=== PATIENT | male | born 1970 | race Caucasian/White ===

== ENCOUNTER 2018-06-23 07:09 | Observation (INO) | payer MEDICAID ==
[2018-06-23] MEDS ORDERED: Albuterol-Ipratrop 3 mg / 0.5 (3 ml) UD ONE (07:15)
--- NOTE | 2018-06-23 07:22 | ED PDOC ---
Arrival/HPI - General Chief Complaint: Shortness Of Breath Time Seen by Provider: 06/23/18 07:12 Historian: Patient - History of Present Illness Narrative History of Present Illness (Text): 48 yr old male w/ hx of asthma p/w shortness of breath, wheezing. Pt notes this shortness of breath began overnight, associated with wheezing, feels like previous asthma exacerbations. Has not hx of smoking or COPD. Is not on home o2. No previous intubations. No previous admissions. No chest pain. No fever, chills or night sweats. Took inhaler at home x 1. No other complaints. Family/Social History Family/Social History: Unknown Family HX Allergies/Home Meds Allergies/Adverse Reactions: Allergies Penicillins Allergy (Verified 06/23/18 07:19) ANAPHYLAXIS Review of Systems - Review of Systems Constitutional: absent: Fatigue, Weight Change, Fevers, Night Sweats Eyes: absent: Vision Changes, Photophobia ENT: absent: Hearing Changes, Tinnitus Respiratory: SOB, Wheezing. absent: Cough, Sputum Cardiovascular: absent: Chest Pain, Palpitations, Edema, Calf Pain, Syncope Gastrointestinal: absent: Abdominal Pain, Stool Changes, Constipation, Diarrhea, Nausea, Vomiting Genitourinary Male: absent: Dysuria, Frequency, Hematuria Musculoskeletal: absent: Arthralgias, Back Pain, Neck Pain Skin: absent: Rash, Pruritis, Skin Lesions Neurological: absent: Headache, Dizziness Endocrine: absent: Diaphoresis, Polyuria Hemo/Lymphatic: absent: Adenopathy, Easy Bleeding Psychiatric: absent: Anxiety, Depression Physical Exam Pain Distress: None Mental Status: Positive for: Alert and Oriented X 3 - Systems Exam Head: Present: Atraumatic, Normocephalic Pupils: Present: PERRL Extroacular Muscles: Present: EOMI Conjunctiva: Present: Normal Ears: Present: Normal Mouth: Present: Moist Mucous Membranes Nose (Internal): Present: Normal Inspection Neck: Present: Normal Range of Motion. No: Meningeal Signs Respiratory/Chest: Present: Good Air Exchange, Wheezes. No: Accessory Muscle Use Cardiovascular: Present: Regular Rate and Rhythm, Normal S1, S2 Abdomen: Present: Normal Bowel Sounds. No: Tenderness, Distention Back: Present: Normal Inspection. No: CVA Tenderness Upper Extremity: Present: Normal Inspection. No: Cyanosis, Edema Lower Extremity: Present: Normal Inspection. No: Edema, CALF TENDERNESS Neurological: Present: GCS=15, CN II-XII Intact, Speech Normal Skin: Present: Warm, Dry, Normal Color. No: Rashes Psychiatric: Present: Alert, Oriented x 3 Medical Decision Making ED Course and Treatment: 48 yr old male w/ hx of asthma p/w asthma exacerbation: wheezes on exam. No home o2 or smoking. No fever. Will rx w/ duoneb, solumedrol and mag and reasses. additional history obtained: Recently given ?abx (pt unsure of name) 3w prior w/ steroid shot and anti-histamine w/ Dr. Cervantes. Improved, however now worsened. 06/23/18 08:55 WBC 17k. No notable CXR findings on my read allergy to penicllin- will rx w/ levoquin Mild wheezes b/l, pt speaking in full sentences. given recent outpt rx, presentation on exam req mag will seek obs/admit. pt agreeable to obs/admission 06/23/18 09:17 appreciate consult w/ Dr. Lockett: to admit to his service pt in NAD Disposition/Present on Arrival - Present on Arrival Any Indicators Present on Arrival: No - Disposition Have Diagnosis and Disposition been Completed?: Yes Diagnosis: Asthma Disposition Time: 09:18 Patient Problems: Current Active Problems Problem Status Onset Asthma Acute Condition: GOOD
[2018-06-23] MEDS ORDERED: Magnesium Sulfate 1 gm in D5W 1 GM/100 ML BAG IVPB ONE (07:23)
[2018-06-23 07:29] LABS: BASO # 0.11 K/mm3 (0.0-2.0); BASO % 0.6 % (0.0-3.0); EOS # 1.4 (0.0-0.7); EOS % 7.9 % (1.5-5.0); GRAN # 9.92 (1.4-6.5); GRAN % 57.1 % (50.0-68.0); HEMOGLOBIN 14.7 g/dL (14.0-18.0); LYMPH # 4.8 (1.2-3.4); LYMPH % 27.8 % (22.0-35.0); MEAN CELL VOLUME 83.3 fl (80.0-105.0); MEAN CORPUSCULAR HGB CONC 32.4 g/dl (31.0-37.0); MONO # 1.1 (0.1-0.6); MONO % 6.6 % (1.0-6.0); RBC 5.45 10^6/uL (3.5-6.1); RED CELL DISTRIBUTION WIDTH 12.7 % (11.5-14.5); WHITE BLOOD COUNT 17.4 10^3/uL (4.5-11.0)
[2018-06-23] MEDS: Albuterol-Ipratrop 3 mg / 0.5 (3 ml) UD IH SCH ×5 (07:29→18:52)
[2018-06-23 08:16] LABS: ALB/GLOB RATIO 1.3 (1.1-1.8); ALBUMIN 3.9 g/dL (3.0-4.8); ALT/SGPT 38 U/L (7-56); AST/SGOT 42 U/L (17-59); BLOOD UREA NITROGEN 23 mg/dL (7-21); CALCIUM 8.5 mg/dL (8.4-10.5); GFR NON-AFRICAN AMERICAN > 60
[2018-06-23] MEDS ORDERED: levoFLOXacin 750 mg in D5W 150 ML BAG IVPB ONE (09:20)
--- NOTE | 2018-06-23 09:24 | RAD ---
Date of service: 06/23/2018 HISTORY: sob COMPARISON: No prior. FINDINGS: LUNGS: No active pulmonary disease. PLEURA: No significant pleural effusion identified, no pneumothorax apparent. CARDIOVASCULAR: No aortic atherosclerotic calcification present. Normal cardiac size. No pulmonary vascular congestion. OSSEOUS STRUCTURES: No significant abnormalities. VISUALIZED UPPER ABDOMEN: Normal. OTHER FINDINGS: None. IMPRESSION: No active disease.
[2018-06-23 10:21] LABS: VENOUS BLOOD GAS BASE EXCESS -0.9 mmol/L (0.0-2.0); VENOUS BLOOD GAS PO2 193 mm/Hg (30-55); VENOUS BLOOD PH 7.32 (7.32-7.43)
[2018-06-23] MEDS ORDERED: Albuterol-Ipratrop 3 mg / 0.5 (3 ml) UD IH PRN (10:29)
--- NOTE | 2018-06-23 10:43 | CP.PCM.HP ---
<BallGeorgeHernan - Last Filed: 06/23/18 13:09> History of Present Illness - History of Present Illness History of Present Illness: 48 year old male with past medical history of seasonal allergies, questionable asthma, tinnitus, HTN presents to the emergency for cough and shortness of breath. Patient states he has had a cough now everyday for about a month and yesterday night he had shortness of breath before bed for which he used his inhaler more than 10 times without much relief. He sated he felt as if "he was going to ". Patient states he was his doctor 3 weeks ago for similar complaints and he was given inhaler and "cortisone" pills which helped his symptoms. In addition, he states he wakes up more than 2x every night to use his inhaler for the past 3 weeks. He has also started losartan about a month ago. He does mention that his daughter recently had a URI. He denies any heart con ditions. Patient denies fever, chills, body aches, nausea, vomiting, abdominal pain, or any other complaints at this time. PMH: questionable asthma, tinnitus, HTN, seasonal allergies PSH: denies Allergies:penicillin Meds: amytriptyline, losratan 50mg, ventolin inhaler Family: HTN Social: denies tobacco or illicit drug use, occasional wine PMD: [facility] Pharmacy: [facility] Present on Admission - Present on Admission Any Indicators Present on Admission: No Review of Systems - Constitutional Constitutional: absent: Chills, Fever, Headache - Cardiovascular Cardiovascular: Dyspnea, Rapid Heart Rate. absent: Chest Pain, Chest Pain with Activity - Respiratory Respiratory: Cough, Dyspnea, Dyspnea on Exertion, Wheezing. absent: Excessive Mucous Production - Gastrointestinal Gastrointestinal: absent: Abdominal Pain, Nausea, Vomiting - Musculoskeletal Musculoskeletal: absent: Arthralgias, Back Pain - Neurological Neurological: absent: Disequilibrium, Dizziness, Headaches, Paresthesias, Syncope, Tingling, Vertigo, Weakness - Endocrine Endocrine: absent: Cold Intolorance, Heat Intolorance Past Patient History - Past Social History Smoking Status: Never Smoked - CARDIAC Hx Hypertension: Yes - PSYCHIATRIC Hx Substance Use: No - SURGICAL HISTORY Hx Surgeries: No - ANESTHESIA Hx Anesthesia: No Hx Anesthesia Reactions: No Hx Malignant Hyperthermia: No Meds Allergies/Adverse Reactions: Allergies Allergy/AdvReac Type Severity Reaction Status Date / Time Penicillins Allergy ANAPHYLAXIS Verified 06/23/18 07:19 Physical Exam - Constitutional Appears: Well, Non-toxic, No Acute Distress - Head Exam Head Exam: ATRAUMATIC, NORMAL INSPECTION, NORMOCEPHALIC - Eye Exam Eye Exam: EOMI, Normal appearance - ENT Exam ENT Exam: Mucous Membranes Moist - Respiratory Exam Respiratory Exam: Wheezes - Cardiovascular Exam Cardiovascular Exam: Tachycardia - GI/Abdominal Exam GI & Abdominal Exam: Normal Bowel Sounds, Soft. absent: Tenderness - Extremities Exam Extremities exam: Positive for: normal inspection, pedal pulses present. Negative for: pedal edema - Neurological Exam Neurological exam: Alert, CN II-XII Intact, Oriented x3 - Skin Skin Exam: Intact, Normal Color, Warm Results - Vital Signs Recent Vital Signs: Last Vital Signs Temp Pulse 109 H 06/23/18 07:16 Resp 22 06/23/18 07:59 BP 147/105 H 06/23/18 07:16 Pulse Ox 97 06/23/18 07:16 - Labs Result Diagrams: 06/23/18 07:17 06/23/18 07:40 Labs: Laboratory Results - last 24 hr 06/23/18 06/23/18 06/23/18 07:17 07:40 09:40 WBC 17.4 H RBC 5.45 Hgb 14.7 Hct 45.4 MCV 83.3 MCH 27.0 MCHC 32.4 RDW 12.7 Plt Count 317 MPV 10.0 Gran % 57.1 Lymph % (Auto) 27.8 [place] % (Auto) 6.6 H Eos % (Auto) 7.9 H Baso % (Auto) 0.6 Gran # 9.92 H Lymph # (Auto) 4.8 H [place] # (Auto) 1.1 H Eos # (Auto) 1.4 H Baso # (Auto) 0.11 pO2 193 H VBG pH 7.32 VBG pCO2 50.0 VBG HCO3 25.8 VBG Total CO2 27.3 VBG O2 Sat (Calc) 100.6 H VBG Base Excess -0.9 L VBG Potassium 4.7 Glucose 208 H Lactate 1.5 FiO2 21.0 Sodium 137 135.0 Potassium 4.4 Chloride 104 102.0 Carbon Dioxide 26 Anion Gap 11 BUN 23 H Creatinine 0.8 Est GFR ( Amer) > 60 Est GFR (Non-Af Amer) > 60 Random Glucose 199 H Calcium 8.5 Total Bilirubin 0.4 AST 42 ALT 38 Alkaline Phosphatase 75 Total Protein 7.0 Albumin 3.9 Globulin 3.1 Albumin/Globulin Ratio 1.3 Venous Blood Potassium 4.7 Assessment & Plan - Assessment and Plan (Free Text) Assessment: 48 year old male with past medical history of seasonal allergies, questionable asthma, tinnitus, HTN presents to the emergency for cough and shortness of breath. Patient states he has had a cough now everyday for about a month and yesterday night he had shortness of breath before bed for which he used his inhaler more than 10 times without much relief. Patient will be monitored and treated for asthma exacerbation. Plan: Asthma Exacerbation -patient seems to have moderate persistent symptoms -EKG sinus tachycardia -Albuterol Nebulizers PRN and scheduled -Solumedrol 40Q12 -Daily CBC and CMP Leukocytosis -afebrile -likely secondary to steroid use -continue to monitor HTN-chronic -continue home losartan DVT Prophylaxis: Lovenox <Julia Lockett - Last Filed: 06/23/18 15:12> Results - Vital Signs Recent Vital Signs: Last Vital Signs Temp 98.5 F 06/23/18 14:10 Pulse 103 H 06/23/18 14:10 Resp 19 06/23/18 14:10 BP 141/83 06/23/18 13:35 Pulse Ox 98 06/23/18 14:10 - Labs Result Diagrams: 06/23/18 07:17 06/23/18 07:40 Labs: Laboratory Results - last 24 hr 06/23/18 06/23/18 06/23/18 07:17 07:40 09:40 WBC 17.4 H RBC 5.45 Hgb 14.7 Hct 45.4 MCV 83.3 MCH 27.0 MCHC 32.4 RDW 12.7 Plt Count 317 MPV 10.0 Gran % 57.1 Lymph % (Auto) 27.8 [place] % (Auto) 6.6 H Eos % (Auto) 7.9 H Baso % (Auto) 0.6 Gran # 9.92 H Lymph # (Auto) 4.8 H [place] # (Auto) 1.1 H Eos # (Auto) 1.4 H Baso # (Auto) 0.11 pO2 193 H VBG pH 7.32 VBG pCO2 50.0 VBG HCO3 25.8 VBG Total CO2 27.3 VBG O2 Sat (Calc) 100.6 H VBG Base Excess -0.9 L VBG Potassium 4.7 Glucose 208 H Lactate 1.5 FiO2 21.0 Sodium 137 135.0 Potassium 4.4 Chloride 104 102.0 Carbon Dioxide 26 Anion Gap 11 BUN 23 H Creatinine 0.8 Est GFR ( Amer) > 60 Est GFR (Non-Af Amer) > 60 POC Glucose (mg/dL) Random Glucose 199 H Calcium 8.5 Total Bilirubin 0.4 AST 42 ALT 38 Alkaline Phosphatase 75 Total Protein 7.0 Albumin 3.9 Globulin 3.1 Albumin/Globulin Ratio 1.3 Venous Blood Potassium 4.7 06/23/18 14:01 WBC RBC Hgb Hct MCV MCH MCHC RDW Plt Count MPV Gran % Lymph % (Auto) [place] % (Auto) Eos % (Auto) Baso % (Auto) Gran # Lymph # (Auto) [place] # (Auto) Eos # (Auto) Baso # (Auto) pO2 VBG pH VBG pCO2 VBG HCO3 VBG Total CO2 VBG O2 Sat (Calc) VBG Base Excess VBG Potassium Glucose Lactate FiO2 Sodium Potassium Chloride Carbon Dioxide Anion Gap BUN Creatinine Est GFR ( Amer) Est GFR (Non-Af Amer) POC Glucose (mg/dL) 306 H Random Glucose Calcium Total Bilirubin AST ALT Alkaline Phosphatase Total Protein Albumin Globulin Albumin/Globulin Ratio Venous Blood Potassium Attending/Attestation - Attestation I have personally seen and examined this patient.: Yes I have fully participated in the care of the patient.: Yes I have reviewed all pertinent clinical information: Yes Notes (Text): 06/23/18 14:45 Medical record note made by the resident after discussion with my direction and input after the patient was personally seen and examined by me. I have reviewed the chart and agree that the record accurately reflects by personal performance of the history, physical exam, data review, and medical decision-making, in the course for the patient. I have also personally directed the plan of care. 48 year old male with past medical history of Obesity,HTN with acute mild acute Persistent Asthma exacerbation. Chest X ray is negative for Pneumonia Continue neb and steroid and antibiotics. Management plan was discussed in detail with patient. Education was provided. 06/23/18 15:11
[2018-06-23] MEDS: Sodium Chloride 0.9% 1,000 ML IV SCH (13:39)
[2018-06-23] MEDS ORDERED: levoFLOXacin 750 mg in D5W 750 MG/150 ML BAG IVPB ONE (13:45)
[2018-06-23] MEDS: Enoxaparin 40 mg Syringe SC SCH ×2 (13:52→14:10)
[2018-06-23 17:38] VITALS: BMI 31.3
[2018-06-23] MEDS ORDERED: Pneumococcal 23-Valent Vaccine IM ONE (17:38)
[2018-06-23] MEDS ORDERED: Dextrose 50% SYRINGE Inj (50 ml) IV PRN (17:40)
[2018-06-23] MEDS: Insulin Reg-LOW-Coverage SC SCH (22:28)
[2018-06-23] MEDS: MethylPREDNISolone 40 mg Vial IVP SCH (22:29)
[2018-06-23 22:34] VITALS: O2SAT 96
[2018-06-24] MEDS: Albuterol-Ipratrop 3 mg / 0.5 (3 ml) UD IH SCH ×5 (00:06→16:09)
--- NOTE | 2018-06-24 07:01 | CP.PCM.PN ---
Subjective - Date & Time of Evaluation Date of Evaluation: 06/24/18 Time of Evaluation: 07:01 - Subjective Subjective: Resident Progress Note for Hospitalist Service Objective - Vital Signs/Intake and Output Vital Signs (last 24 hours): Temp Pulse Resp BP Pulse Ox 99.1 F 104 H 18 144/89 96 06/23/18 22:33 06/23/18 22:33 06/23/18 22:33 06/23/18 22:33 06/23/18 22:33 Intake and Output: 06/24/18 06/24/18 06:59 18:59 Intake Total 600 Balance 600 - Medications Medications: Current Medications Albuterol/Ipratropium (Duoneb 3 Mg/0.5 Mg (3 Ml) Ud) 3 ml IH Q2H PRN PRN Reason: Shortness of Breath Albuterol/Ipratropium (Duoneb 3 Mg/0.5 Mg (3 Ml) Ud) 3 ml IH [id number] CLAUDIO Last Admin: 06/24/18 04:13 Dose: 3 ml Dextrose (Dextrose 50% Inj) 0 ml IV STAT PRN; Protocol PRN Reason: Hypoglycemia Protocol Enoxaparin Sodium (Lovenox) 40 mg SC DAILY CLAUDIO; Protocol Last Admin: 06/23/18 14:10 Dose: 40 mg Sodium Chloride (Sodium Chloride 0.9%) 1,000 mls @ 100 mls/hr IV .Q10H CLAUDIO Last Admin: 06/23/18 13:39 Dose: 100 mls/hr Dextrose (Dextrose 5% In Water 1000 Ml) 1,000 mls @ 0 mls/hr IV .Q0M PRN; Protocol PRN Reason: Hypoglycemia Protocol Insulin Human Regular (Humulin R Low) 0 units SC ACHS CLAUDIO; Protocol Last Admin: 06/23/18 22:28 Dose: Not Given Losartan Potassium (Cozaar) 50 mg PO DAILY CLAUDIO Methylprednisolone (Solu-Medrol) 40 mg IVP Q12 CLAUDIO Last Admin: 06/23/18 22:29 Dose: 40 mg - Labs Labs: 06/23/18 07:17 06/23/18 07:40
[2018-06-24 07:20] LABS: BASO # 0.01 K/mm3 (0.0-2.0); BASO % 0.1 % (0.0-3.0); GRAN # 8.57 (1.4-6.5); GRAN % 80.8 % (50.0-68.0); HEMOGLOBIN 12.8 g/dL (14.0-18.0); LYMPH # 1.3 (1.2-3.4); LYMPH % 12.6 % (22.0-35.0); MEAN CORPUSCULAR HEMOGLOBIN 26.2 pg (25.0-35.0); MEAN PLATELET VOLUME 9.7 fl (7.0-11.0); MONO # 0.7 (0.1-0.6); MONO % 6.5 % (1.0-6.0); RBC 4.88 10^6/uL (3.5-6.1); RED CELL DISTRIBUTION WIDTH 12.5 % (11.5-14.5); WHITE BLOOD COUNT 10.6 10^3/uL (4.5-11.0)
[2018-06-24 07:53] LABS: ALB/GLOB RATIO 1.3 (1.1-1.8); ALBUMIN 3.9 g/dL (3.0-4.8); ALT/SGPT 28 U/L (7-56); AST/SGOT 19 U/L (17-59); BLOOD UREA NITROGEN 14 mg/dL (7-21); GFR NON-AFRICAN AMERICAN > 60
[2018-06-24] MEDS: Insulin Reg-LOW-Coverage SC SCH ×3 (08:31→17:19)
--- NOTE | 2018-06-24 09:09 | CARD ---
APPROVED REPORT Date of service: 06/23/2018 EKG Measurement Heart [id number] NM [id number] <Conclusion> Sinus tachycardia Inferior infarct, age undetermined
[2018-06-24 09:35] VITALS: PULSE 96; RESP 20; TEMP 97.9
[2018-06-24] MEDS: Sodium Chloride 0.9% 1,000 ML IV SCH (10:55)
[2018-06-24] MEDS: MethylPREDNISolone 40 mg Vial IVP SCH (10:55)
[2018-06-24] MEDS: Enoxaparin 40 mg Syringe SC SCH (10:56)
[2018-06-24 14:26] VITALS: BP 137/84
--- NOTE | 2018-06-24 15:06 | CP.PCM.DIS ---
<Lalitha Lozano L - Last Filed: 06/24/18 15:53> Provider - Provider Date of Admission: 06/23/18 09:20 Attending physician: Gregory Chambers MD Primary care physician: Dr. Cervantes Consults: 06/23/18 17:38 Inpatient [employer] Core Measures Referral Routine Comment: Physician Instructions: Reason For Exam: eval Transition In Care/Readmission Reduction Routine Comment: Physician Instructions: Reason For Exam: eval Time Spent in preparation of Discharge (in minutes): 45 Diagnosis - Discharge Diagnosis (1) Asthma Status: Acute Hospital Course - Lab Results Lab Results: Micro Results 06/23/18 08:30 Blood Blood Culture - Preliminary NO GROWTH AFTER 24 HOURS 06/23/18 07:40 Blood Blood Culture - Preliminary NO GROWTH AFTER 24 HOURS Most Recent Lab Values WBC 10.6 10^3/uL (4.5-11.0) D 06/24/18 06:30 RBC 4.88 10^6/uL (3.5-6.1) 06/24/18 06:30 Hgb 12.8 g/dL (14.0-18.0) L 06/24/18 06:30 Hct 40.0 % (42.0-52.0) L 06/24/18 06:30 MCV 82.0 fl (80.0-105.0) 06/24/18 06:30 MCH 26.2 pg (25.0-35.0) 06/24/18 06:30 MCHC 32.0 g/dl (31.0-37.0) 06/24/18 06:30 RDW 12.5 % (11.5-14.5) 06/24/18 06:30 Plt Count 265 10^3/uL (120.0-450.0) 06/24/18 06:30 MPV 9.7 fl (7.0-11.0) 06/24/18 06:30 Gran % 80.8 % (50.0-68.0) H 06/24/18 06:30 Lymph % (Auto) 12.6 % (22.0-35.0) L 06/24/18 06:30 [place] % (Auto) 6.5 % (1.0-6.0) H 06/24/18 06:30 Eos % (Auto) 0.0 % (1.5-5.0) L 06/24/18 06:30 Baso % (Auto) 0.1 % (0.0-3.0) 06/24/18 06:30 Gran # 8.57 (1.4-6.5) H 06/24/18 06:30 Lymph # (Auto) 1.3 (1.2-3.4) 06/24/18 06:30 [place] # (Auto) 0.7 (0.1-0.6) H 06/24/18 06:30 Eos # (Auto) 0.0 (0.0-0.7) 06/24/18 06:30 Baso # (Auto) 0.01 K/mm3 (0.0-2.0) 06/24/18 06:30 pO2 193 mm/Hg (30-55) H 06/23/18 09:40 VBG pH 7.32 (7.32-7.43) 06/23/18 09:40 VBG pCO2 50.0 (40-60) 06/23/18 09:40 VBG HCO3 25.8 mmol/l (21-28) 06/23/18 09:40 VBG Total CO2 27.3 mmol.L (22-28) 06/23/18 09:40 VBG O2 Sat (Calc) 100.6 % (40-65) H 06/23/18 09:40 VBG Base Excess -0.9 mmol/L (0.0-2.0) L 06/23/18 09:40 VBG Potassium 4.7 mmol/L (3.6-5.2) 06/23/18 09:40 Sodium 135.0 mmol/L (132-148) 06/23/18 09:40 Chloride 102.0 mmol/L (98-107) 06/23/18 09:40 Glucose 208 mg/dl (75-110) H 06/23/18 09:40 Lactate 1.5 mmol/L (0.7-2.1) 06/23/18 09:40 FiO2 21.0 % 06/23/18 09:40 Sodium 136 mmol/L (132-148) 06/24/18 06:30 Potassium 4.4 mmol/L (3.6-5.0) 06/24/18 06:30 Chloride 102 mmol/L (98-107) 06/24/18 06:30 Carbon Dioxide 27 mmol/L (21-33) 06/24/18 06:30 Anion Gap 12 (10-20) 06/24/18 06:30 BUN 14 mg/dL (7-21) 06/24/18 06:30 Creatinine 0.6 mg/dl (0.8-1.5) L 06/24/18 06:30 Est GFR ( Amer) > 60 06/24/18 06:30 Est GFR (Non-Af Amer) > 60 06/24/18 06:30 POC Glucose (mg/dL) 213 mg/dL (65-110) H 06/24/18 10:44 Random Glucose 257 mg/dL (70-110) H 06/24/18 06:30 Calcium 9.0 mg/dL (8.4-10.5) 06/24/18 06:30 Total Bilirubin 0.4 mg/dL (0.2-1.3) 06/24/18 06:30 AST 19 U/L (17-59) 06/24/18 06:30 ALT 28 U/L (7-56) 06/24/18 06:30 Alkaline Phosphatase 65 U/L (38-126) 06/24/18 06:30 Total Protein 6.9 g/dL (5.8-8.3) 06/24/18 06:30 Albumin 3.9 g/dL (3.0-4.8) 06/24/18 06:30 Globulin 3.0 gm/dL 06/24/18 06:30 Albumin/Globulin Ratio 1.3 (1.1-1.8) 06/24/18 06:30 Procalcitonin < 0.05 NG/ML (0.19-0.49) L 06/23/18 10:30 Venous Blood Potassium 4.7 mmol/L (3.6-5.2) 06/23/18 09:40 - Hospital Course Hospital Course: On admission: 48 year old male with past medical history of seasonal allergies, questionable asthma, tinnitus, HTN presents to the emergency for cough and shortness of breath. Patient states he has had a cough now everyday for about a month and yesterday night he had shortness of breath before bed for which he used his inhaler more than 10 times without much relief. He stated he felt as if "he was going to ". Patient states he was his doctor 3 weeks ago for similar complaints and he was given inhaler and "cortisone" pills which helped his symptoms. In addition, he states he wakes up more than 2x every night to use his inhaler for the past 3 weeks. He has also started losartan about a month ago. He does mention that his daughter recently had a URI. He denies any heart conditions. Patient denies fever, chills, body aches, nausea, vomiting, abdominal pain, or any other complaints at this time. Hospital course: Chest x-ray was done which showed no active disease. Patient was treated with duonebs, given one dose of levofloxacin, and methylprednisolone 40 mg IV Q12 with symptomatic improvement. Patient was medically optimized for discharge and sent home with prescriptions for medro dose rajinder, nebulizer machine, and brovana and albuterol inhalation solutions. Please see EMR for full summary. - Date & Time of H&P Date of H&P: 06/23/18 Time of H&P: 10:37 Discharge Exam - Head Exam Head Exam: ATRAUMATIC, NORMAL INSPECTION, NORMOCEPHALIC Discharge Plan - Discharge Medications Prescriptions: Methylprednisolone [Medrol Dose Pack (21 tabs)] See Taper PO DAILY #21 mg - Follow Up Plan Condition: GOOD Disposition: HOME/ ROUTINE Instructions: Asthma (DC) Additional Instructions: Please follow up with your primary medical doctor within one week. You have been prescribed a medrol dose pack and nebulizer machine. Please take prescriptions and use nebulizer machine as prescribed. Also resume your home medications. Return to ED if symptoms return or worsen. <Gregory Chambers - Last Filed: 06/24/18 16:26> Provider - Provider Date of Admission: 06/23/18 09:20 Attending physician: Gregory Chambers MD Consults: 06/23/18 17:38 Inpatient [employer] Core Measures Referral Routine Comment: Physician Instructions: Reason For Exam: eval Transition In Care/Readmission Reduction Routine Comment: Physician Instructions: Reason For Exam: eval Hospital Course - Lab Results Lab Results: Micro Results 06/23/18 08:30 Blood Blood Culture - Preliminary NO GROWTH AFTER 24 HOURS 06/23/18 07:40 Blood Blood Culture - Preliminary NO GROWTH AFTER 24 HOURS Most Recent Lab Values WBC 10.6 10^3/uL (4.5-11.0) D 06/24/18 06:30 RBC 4.88 10^6/uL (3.5-6.1) 06/24/18 06:30 Hgb 12.8 g/dL (14.0-18.0) L 06/24/18 06:30 Hct 40.0 % (42.0-52.0) L 06/24/18 06:30 MCV 82.0 fl (80.0-105.0) 06/24/18 06:30 MCH 26.2 pg (25.0-35.0) 06/24/18 06:30 MCHC 32.0 g/dl (31.0-37.0) 06/24/18 06:30 RDW 12.5 % (11.5-14.5) 06/24/18 06:30 Plt Count 265 10^3/uL (120.0-450.0) 06/24/18 06:30 MPV 9.7 fl (7.0-11.0) 06/24/18 06:30 Gran % 80.8 % (50.0-68.0) H 06/24/18 06:30 Lymph % (Auto) 12.6 % (22.0-35.0) L 06/24/18 06:30 [place] % (Auto) 6.5 % (1.0-6.0) H 06/24/18 06:30 Eos % (Auto) 0.0 % (1.5-5.0) L 06/24/18 06:30 Baso % (Auto) 0.1 % (0.0-3.0) 06/24/18 06:30 Gran # 8.57 (1.4-6.5) H 06/24/18 06:30 Lymph # (Auto) 1.3 (1.2-3.4) 06/24/18 06:30 [place] # (Auto) 0.7 (0.1-0.6) H 06/24/18 06:30 Eos # (Auto) 0.0 (0.0-0.7) 06/24/18 06:30 Baso # (Auto) 0.01 K/mm3 (0.0-2.0) 06/24/18 06:30 pO2 193 mm/Hg (30-55) H 06/23/18 09:40 VBG pH 7.32 (7.32-7.43) 06/23/18 09:40 VBG pCO2 50.0 (40-60) 06/23/18 09:40 VBG HCO3 25.8 mmol/l (21-28) 06/23/18 09:40 VBG Total CO2 27.3 mmol.L (22-28) 06/23/18 09:40 VBG O2 Sat (Calc) 100.6 % (40-65) H 06/23/18 09:40 VBG Base Excess -0.9 mmol/L (0.0-2.0) L 06/23/18 09:40 VBG Potassium 4.7 mmol/L (3.6-5.2) 06/23/18 09:40 Sodium 135.0 mmol/L (132-148) 06/23/18 09:40 Chloride 102.0 mmol/L (98-107) 06/23/18 09:40 Glucose 208 mg/dl (75-110) H 06/23/18 09:40 Lactate 1.5 mmol/L (0.7-2.1) 06/23/18 09:40 FiO2 21.0 % 06/23/18 09:40 Sodium 136 mmol/L (132-148) 06/24/18 06:30 Potassium 4.4 mmol/L (3.6-5.0) 06/24/18 06:30 Chloride 102 mmol/L (98-107) 06/24/18 06:30 Carbon Dioxide 27 mmol/L (21-33) 06/24/18 06:30 Anion Gap 12 (10-20) 06/24/18 06:30 BUN 14 mg/dL (7-21) 06/24/18 06:30 Creatinine 0.6 mg/dl (0.8-1.5) L 06/24/18 06:30 Est GFR ( Amer) > 60 06/24/18 06:30 Est GFR (Non-Af Amer) > 60 06/24/18 06:30 POC Glucose (mg/dL) 213 mg/dL (65-110) H 06/24/18 10:44 Random Glucose 257 mg/dL (70-110) H 06/24/18 06:30 Calcium 9.0 mg/dL (8.4-10.5) 06/24/18 06:30 Total Bilirubin 0.4 mg/dL (0.2-1.3) 06/24/18 06:30 AST 19 U/L (17-59) 06/24/18 06:30 ALT 28 U/L (7-56) 06/24/18 06:30 Alkaline Phosphatase 65 U/L (38-126) 06/24/18 06:30 Total Protein 6.9 g/dL (5.8-8.3) 06/24/18 06:30 Albumin 3.9 g/dL (3.0-4.8) 06/24/18 06:30 Globulin 3.0 gm/dL 06/24/18 06:30 Albumin/Globulin Ratio 1.3 (1.1-1.8) 06/24/18 06:30 Procalcitonin < 0.05 NG/ML (0.19-0.49) L 06/23/18 10:30 Venous Blood Potassium 4.7 mmol/L (3.6-5.2) 06/23/18 09:40 Discharge Exam - Head Exam Head Exam: NORMAL INSPECTION - Eye Exam Eye Exam: EOMI - ENT Exam ENT Exam: Normal Exam - Respiratory Exam Respiratory Exam: Wheezes (mild). absent: Rales, Rhonchi - Cardiovascular Exam Cardiovascular Exam: REGULAR RHYTHM, +S1, +S2 - GI/Abdominal Exam GI & Abdominal Exam: Normal Bowel Sounds, Soft. absent: Guarding, Rebound, Tenderness - Extremities Exam Extremities exam: normal inspection - Neurological Exam Neurological exam: Alert, Oriented x3 - Psychiatric Exam Psychiatric exam: Normal Affect, Normal Mood Attending/Attestation - Attestation I have personally seen and examined this patient.: Yes I have fully participated in the care of the patient.: Yes I have reviewed all pertinent clinical information, including history, physical exam and plan: Yes Notes (Text): 06/24/18 16:22 48 year old male with past medical history of asthma who presented with complaint of cough and shortness of breath secondary to asthma exacerbation. CXR was negative. He had leukocytosis on admission which improved today. Procalcitonin was low. He was started on duonebs and iv steroids with improvement of symptoms. Patient is discharged home today to follow up with his pmd. Discharged on medrol dosepack, duonebs and ventolin prn. Counselled on smoking cessation. is at bedside and questions were answered. Gregory Chambers MD Hospitalist.
== END 2018-06-24 19:05 | disposition home or self-care (01) ==
LOC: ED 07:09 → ERH 09:20 → 5RNO 15:07
PROVIDERS: ADMIT Internal Medicine; ATTEND Internal Medicine
DX: J45.31 Mild persistent asthma with (acute) exacerbation (principal); I10 Essential (primary) hypertension; D72.829 Elevated white blood cell count, unspecified; E66.9 Obesity, unspecified; Z68.31 Body mass index [BMI] 31.0-31.9, adult